=== PATIENT | female | born 1990 | race Caucasian/White ===

== ENCOUNTER 2019-05-07 01:15 | Inpatient (IN) | payer OTHER ==
[2019-05-07] MEDS ORDERED: NS / Oxytocin 40 units/1000ml 1,000 ML ONE (01:44)
[2019-05-07] MEDS ORDERED: Lidocaine 1% (PF) 30 ML VIAL ONE (01:44)
[2019-05-07] MEDS ORDERED: Ondansetron PF 4 MG/2 ML Vial IVP PRN ×3 (01:49→09:16)
[2019-05-07] MEDS ORDERED: Promethazine HCl 25 MG/ML VIAL IM PRN ×3 (01:49→09:16)
[2019-05-07] MEDS ORDERED: hydrALAZINE 20 MG/ML VIAL SLOW IVP PRN ×2 (01:49→09:16)
[2019-05-07] MEDS ORDERED: Lidocaine 1% (PF) 30 ML VIAL SC PRN (01:49)
[2019-05-07] MEDS ORDERED: Ibuprofen 800 MG TAB PO PRN (01:49)
[2019-05-07] MEDS ORDERED: NS / Oxytocin 40 units/1000ml 1,000 ML IV PRN (01:49)
[2019-05-07] MEDS ORDERED: Acetaminophen/Codeine 30-300mg Tablet PO PRN ×2 (01:49)
[2019-05-07] MEDS ORDERED: Butorphanol Tartrate 1 MG/ML VIAL SLOW IVP PRN (01:49)
[2019-05-07] MEDS ORDERED: Meperidine HCl/PF 25 MG/ML VIAL IM/IV PRN (01:49)
[2019-05-07] MEDS ORDERED: Zolpidem Tartrate 5 MG TAB PO PRN ×2 (01:49→03:53)
[2019-05-07] MEDS ORDERED: Oxytocin 10 UNITS/ML VIAL ONE ×3 (01:56→02:37)
[2019-05-07] MEDS ORDERED: Lactated Ringer's 1,000 ML IV SCH (02:00)
[2019-05-07] MEDS ORDERED: Fentanyl 250 MCG/5 ML VIAL ONE (02:22)
[2019-05-07 02:24] LABS: Hemoglobin 13.8 g/dL (12.0-16.0); Mean Corpuscular HGB CONC 35.3 g/dL (32.0-36.0); Mean Corpuscular Hemoglobin 33.6 pg (27.0-31.0); Mean Corpuscular Volume 95.2 fL (78.0-98.0); Mean Platelet Volume 7.7 fL (7.4-10.4); Platelet Count 297 thou/uL (130-400); RBC Distribution Width 11.6 % (11.5-14.5); White Blood Cell (WBC) Count 13.1 thou/uL (4.8-10.8)
[2019-05-07] MEDS ORDERED: Ondansetron PF 4 MG/2 ML Vial ONE (02:27)
[2019-05-07 02:35] LABS: pH (Cord, venous) 7.36 (7.32-7.43)
--- NOTE | 2019-05-07 02:51 | PDOC.EVN ---
Event Note - Event Note Event Note: CTSP for decreased FHts. SVE 8-9 cm, BBOW, vtx. AROM clear and FSE placed. FHTs to 60s seen. Pt. taken to OR where decreased FHTs again seen. Dr. Fleming arrived, proceeded with 1* C/S.
[2019-05-07 03:03] LABS: HBSAg Index 0.18 S/CO (0-0.99); Hep B Surf Ag Non-Reactive S/CO (NonReactive)
--- NOTE | 2019-05-07 03:48 | PDOC.LDHP ---
Labor and Delivery H&P HPI: 28 y/o at 40 and 1/7 weeks presents in labor to L&D, with Bulging membranes into the vagina and 8-9cm dilation. Apparently, she has contracted on and off at home throughout the day per her . Dr. Whipple, on hospitalist duty, was the first to evaluate the patient, perform AROM, and internal monitors were placed. bradycardia was encountered and failed to resolve throughout this initial evaluation. Patient was taken to the C -Section operating room. Persistent bradycardia was still encounter into the 60' s heart rate. Dr. Fleming arrived [place] [facility] [place] on the operating room table, Dr. Steve at bedside and Jack Worley CRNA at bedside. The OR was completely set-up for stat . Cervical check by Dr. Fleming at bedside was 8-9cm dilated /90% effaced/ -2 station. No prominent vaginal bleeding was encountered. No cord prolapse was noted. Vaginal delivery was not imminent and cervix was still present. At this point, I recommended to the patient and her that proceeding with immediate was the safest option for the baby, and the fastest method to resolve bradycardia and minimize a change at anoxic brain injury to the baby since a prolonged heart rate in the 60s was dangerous for the baby, and the patient was still relatively remote from delivery. We proceeded with stat under General Anesthesia. Start (cut) time of surgery was 216am. Baby was delivered and carried to [facility] in one minute at 217am. Cord gases were collected and sent. Placenta was sent to pathology. Current gestational age (weeks): 40 Due date: 05/06/19 Grav: 3 Para: 2 Current complications: none Abnormal US findings: No Current medications: pre- vitamins Allergies/Adverse Reactions: Allergies Allergy/AdvReac Type Severity Reaction Status Date / Time No Allergy Information Allergy Unverified 05/07/19 02:27 Available Social history: none - Physical Exam Vital signs reviewed and normal: yes General: NAD, resting, breathing through contractions Heart: RRR Lungs: CTAB Abdomen: NTTP Extremeties: no edema - Vaginal Exam cm dilated: 8 Effacement: 90% Station: -2 - Assessment L&D Assessment: term patient in labor - Plan Plan: admit to L&D
[2019-05-07] MEDS ORDERED: diphenhydrAMINE 50 MG/ML VIAL IVP PRN (03:53)
[2019-05-07] MEDS ORDERED: diphenhydrAMINE 25 MG CAP PO PRN ×2 (03:53→09:16)
[2019-05-07] MEDS ORDERED: diphenhydrAMINE 50 MG/ML VIAL IM PRN (03:53)
[2019-05-07] MEDS ORDERED: HYDROmorphone 10 mg/100 ml CADD IVPB PRN (03:53)
[2019-05-07] MEDS ORDERED: Naloxone HCl 0.4 mg/ml Vial IV PRN (03:53)
[2019-05-07] MEDS ORDERED: Communication Order-Pharmacy FS SCH (04:00)
[2019-05-07] MEDS: Lactated Ringer's 1,000 ML IV SCH ×2 (04:02→05:51)
[2019-05-07] MEDS ORDERED: Meperidine HCl/PF 25 MG/ML VIAL ONE (04:12)
[2019-05-07 04:41] VITALS: BMI 20.3
[2019-05-07 04:54] LABS: Syphilis Antibody Nonreactive (Nonreactive); Syphilis Antibody Index 0.04 S/CO (<1.00 Non-Reactive)
--- NOTE | 2019-05-07 06:07 | RAD ---
SINGLE VIEW ABDOMEN: INDICATIONS: Status post . Verify needle and sponge count. COMPARISON: None. FINDINGS: The visualized mid to lower abdomen demonstrates no retained radiopaque foreign body, such as a spong e or needle. There is a post gravid uterus seen within the mid to lower abdomen. The bowel gas kelton rubina is nonspecific. No acute osseous abnormality is evident. IMPRESSION: No retained radiopaque foreign body. POS: BH
--- NOTE | 2019-05-07 06:08 | RAD ---
SINGLE VIEW UPPER ABDOMEN: INDICATIONS: Verify count following . COMPARISON: Prior KUB performed earlier at 2:42 a.m. FINDINGS: No retained foreign body seen within the mid to upper abdomen. The dome of the liver is excluded. T he left lung base is clear. The bowel gas pattern is nonspecific but without evidence of obstruction . No acute osseous abnormality is evident. IMPRESSION: No retained radiopaque foreign body. POS: BH
[2019-05-07] MEDS ORDERED: Heparin 1,000 UNITS/ML VIAL ONE (09:00)
[2019-05-07] MEDS ORDERED: Methylergonovine 0.2 MG/ML VIAL IM PRN (09:16)
[2019-05-07] MEDS ORDERED: Misoprostol 200 MCG TAB PR PRN (09:16)
[2019-05-07] MEDS ORDERED: Simethicone Chewable 80 MG TAB PO PRN (09:16)
[2019-05-07] MEDS ORDERED: Bisacodyl 10 MG SUPP PR PRN (09:16)
[2019-05-07] MEDS ORDERED: Varicella virus, LIVE 0.5 ML VIAL SC ONE (09:16)
[2019-05-07] MEDS ORDERED: Adacel (T-DAP) 0.5 ML SYRINGE IM ONE (09:16)
[2019-05-07] MEDS ORDERED: NS / Oxytocin 40 units/1000ml 1,000 ML IV SCH (09:16)
[2019-05-07] MEDS ORDERED: Measles/Mumps/Rubella 10 MCG/0.5 ML VIAL SC ONE (09:16)
[2019-05-07] MEDS ORDERED: Lanolin Ointment 7 GM TUBE TOP PRN (09:16)
[2019-05-07] MEDS: Docusate Calcium (SURFAK) 240 MG CAP PO SCH ×2 (10:59→21:28)
[2019-05-07] MEDS ORDERED: PHENYLEPHRINE-NS 100 MCG/ML 10 ML SYRINGE ONE ×2 (11:11→16:27)
[2019-05-07] MEDS ORDERED: ePHEDrine/0.9% NaCl/PF SYRINGE 50 mg/10 ml ONE (11:11)
[2019-05-07] MEDS ORDERED: Succinylcholine Chloride 20 MG/ML 10 ml SYRINGE FS ONE ×2 (11:11→16:27)
[2019-05-07] MEDS: Ibuprofen 800 MG TAB PO SCH ×2 (13:38→21:28)
[2019-05-07] MEDS: HYDROcodone/Acetaminophen 5/325 mg Tablet PO PRN ×2 (15:49→22:41)
[2019-05-07] MEDS ORDERED: PROPOFOL 200 MG/20 ML VIAL ONE (16:27)
[2019-05-07] MEDS ORDERED: ePHEDrine 50 MG/ML VIAL ONE (16:27)
--- NOTE | 2019-05-07 18:34 | PDOC.PP ---
Post Progress Note Post Day #: 0 PO intake tolerated: yes Flatus: yes Ambulation: yes Vital Signs (12 hours) Temp Pulse Resp BP Pulse Ox 05/07/19 15:58 98.7 F 98 12 102/62 97 05/07/19 08:45 98.7 F 99 20 102/62 97 Weight Weight 130 lb - Physical Examination General: NAD Cardiovascular: no m/r/g Respiratory: clear to auscultation bilaterally Abdominal: + bowel sounds, lochia, no distention, appropriately TTP Extremities: negative homans (B) Skin: CS incision dry & intact, no rash Neurological: no gross focal deficits Psychiatric: A&Ox3, normal affect Result Diagrams: 05/07/19 02:15 Additional Labs: Post Labs Blood Type O POSITIVE 05/07/19 02:51 Hep Bs Antigen Non-Reactive S/CO (NonReactive) 05/07/19 02:15
[2019-05-08] MEDS: Ibuprofen 800 MG TAB PO SCH ×3 (04:37→20:58)
[2019-05-08] MEDS: HYDROcodone/Acetaminophen 5/325 mg Tablet PO PRN ×4 (04:38→19:02)
[2019-05-08 04:55] LABS: Hemoglobin 9.5 g/dL (12.0-16.0); Mean Corpuscular HGB CONC 33.8 g/dL (32.0-36.0); Mean Corpuscular Hemoglobin 32.8 pg (27.0-31.0); Mean Platelet Volume 7.8 fL (7.4-10.4); Platelet Count 237 thou/uL (130-400); RBC Distribution Width 11.8 % (11.5-14.5); White Blood Cell (WBC) Count 11.2 thou/uL (4.8-10.8)
[2019-05-08] MEDS: Docusate Calcium (SURFAK) 240 MG CAP PO SCH ×2 (09:25→20:58)
--- NOTE | 2019-05-08 23:48 | PDOC.PP ---
Post Progress Note Post Day #: 1 PO intake tolerated: yes Flatus: yes Ambulation: yes Vital Signs (12 hours) Temp Pulse Resp BP Pulse Ox 05/08/19 20:00 98.2 F 94 22 H 118/72 98 05/08/19 16:00 98.4 F 92 20 108/66 05/08/19 12:14 98.1 F 104 H 20 103/65 Weight Weight 130 lb - Physical Examination General: NAD Cardiovascular: no m/r/g, RRR Respiratory: clear to auscultation bilaterally, non-labored breathing Abdominal: + bowel sounds, lochia, no distention, appropriately TTP Extremities: negative homans (B) Skin: CS incision dry & intact, no rash Neurological: no gross focal deficits Psychiatric: A&Ox3, normal affect Result Diagrams: 05/08/19 04:12 Additional Labs: Post Labs Blood Type O POSITIVE 05/07/19 02:51 Hep Bs Antigen Non-Reactive S/CO (NonReactive) 05/07/19 02:15
[2019-05-09] MEDS: HYDROcodone/Acetaminophen 5/325 mg Tablet PO PRN ×4 (00:35→17:29)
[2019-05-09] MEDS: Ibuprofen 800 MG TAB PO SCH ×3 (05:34→17:32)
[2019-05-09] MEDS: Docusate Calcium (SURFAK) 240 MG CAP PO SCH ×2 (08:47→22:31)
--- NOTE | 2019-05-09 13:47 | PDOC.PP ---
Post Progress Note Post Day #: 2 PO intake tolerated: yes Flatus: yes Ambulation: yes Vital Signs (12 hours) Temp Pulse Resp BP Pulse Ox 05/09/19 13:31 98.8 F 05/09/19 12:50 99.1 F 05/09/19 12:33 98.7 F 94 15 108/71 05/09/19 08:23 97.7 F 73 16 93/62 98 05/09/19 06:35 93/61 05/09/19 04:54 98.0 F 88 20 87/54 L 97 Weight Weight 130 lb - Physical Examination General: NAD Cardiovascular: no m/r/g, RRR Respiratory: clear to auscultation bilaterally Abdominal: + bowel sounds, lochia, no distention Extremities: negative homans (B) Skin: CS incision dry & intact, no rash Neurological: no gross focal deficits Psychiatric: A&Ox3, normal affect (DC to home) Result Diagrams: 05/08/19 04:12 Additional Labs: Post Labs Blood Type O POSITIVE 05/07/19 02:51 Hep Bs Antigen Non-Reactive S/CO (NonReactive) 05/07/19 02:15
[2019-05-09] MEDS ORDERED: Bisacodyl 10 MG SUPP PR PRN (17:21)
[2019-05-09] MEDS ORDERED: Cefadroxil Hydrate 500 mg/5 ml Suspenion PO SCH ×2 (18:00→21:00)
[2019-05-09] MEDS: Cefadroxil Hydrate 500 mg/5 ml Suspenion PO SCH (18:38)
[2019-05-10] MEDS: HYDROcodone/Acetaminophen 5/325 mg Tablet PO PRN ×5 (02:05→23:46)
[2019-05-10] MEDS: Ibuprofen 800 MG TAB PO SCH ×3 (03:24→20:46)
[2019-05-10 04:17] LABS: Bacteria/HPF None Seen HPF (None Seen); Bilirubin Negative (Negative); Blood, Urine Negative (Negative); Clarity Clear (Clear); Glucose, Urine (Dipstick) Normal (Negative); Leukocyte Negative Leu/uL (Negative); Nitrite Negative (Negative); Protein, Urine (Dipstick) Negative (Neg-Trace); RBC/HPF 0-3 HPF (0-3); Squamous Epithelial 0-3 HPF (0-3); Urobilinogen Normal mg/dL (Less than 2); WBC/HPF 0-3 HPF (0-3)
--- NOTE | 2019-05-10 04:21 | PDOC.PP ---
Post Progress Note Post Day #: 3 Subjective: Patient has had some fever and chills which started yesterday late afternoon. She was started on Duricef 500mg BID. She has endometritis last after , but etiology of this fever remains unknown. Given the nature of her stat c- section, rapid friedman placement, etc. the chance of UTI is high. She has no cough or URI symptoms despite general anesthesia. She has now had one bowel movement. If the patient has another high fever, we will do zendejas cultures, and restart IV and change to broad specrum IV antibiotics. This morning, she stats she feels better, chills have improved. UA and Urine culture pending. Lab contacted for results. Pulse ox 99% on room air last check. Doubt DVT or PE. PO intake tolerated: yes Flatus: yes Ambulation: yes Vital Signs (12 hours) Temp Pulse Resp BP 05/10/19 03:34 100.1 F H 120 H 115/55 L 05/10/19 01:22 99.3 F 144 H 129/97 H 05/10/19 00:36 98.8 F 05/09/19 20:00 98.5 F 105 H 18 104/66 05/09/19 17:36 101.1 F H 05/09/19 16:45 99.9 F H 05/09/19 16:19 98.9 F 106 H 13 102/59 L Weight Weight 130 lb - Physical Examination General: NAD Cardiovascular: no m/r/g, RRR Respiratory: clear to auscultation bilaterally, non-labored breathing Abdominal: + bowel sounds, lochia, no distention, appropriately TTP Extremities: negative homans (B) Skin: CS incision dry & intact, no rash Neurological: no gross focal deficits Psychiatric: A&Ox3, normal affect Result Diagrams: 05/08/19 04:12 Additional Labs: Post Labs Blood Type O POSITIVE 05/07/19 02:51 Hep Bs Antigen Non-Reactive S/CO (NonReactive) 05/07/19 02:15
--- NOTE | 2019-05-10 05:00 | OP ---
DATE OF PROCEDURE: 05/07/2019 [facility]: [facility]. PREOPERATIVE DIAGNOSES: Intrauterine at 40 weeks and 1 day with distress and bradycardia with heart rate measured down to the 60s in the labor and delivery room and again down into the 60s in the operating room prior to section. POSTOPERATIVE DIAGNOSES: Intrauterine at 40 weeks and 1 day with distress and bradycardia with heart rate measured down to the 60s in the labor and delivery room and again down into the 60s in the operating room prior to section. PROCEDURE PERFORMED: Primary low transverse section using a Pfannenstiel skin incision. FINDINGS: Viable male weighing 3345 g or 7 pounds 6 ounces. Apgars 9 and 9. Cord pH of 7.31 arterial, 7.36 venous. QUANTITATIVE BLOOD LOSS: 965 mL. DETAILS OF THE PROCEDURE: The patient was consented and taken back to the operating room where spinal anesthesia was found to be adequate. She was then prepped and draped in the normal sterile fashion. A timeout was performed by the entire operative team. The incision was then marked with a marking pen tested using sharp pickups. An incision was then made with a scalpel. The incision was carried through the adipose tissue down to the underlying rectus fascia using both sharp dissection as well as cautery. Once the fascia was identified, it was incised in the midline and then the fascial incision was carried through in both lateral directions using sharp as well as cautery dissection techniques. Next, the superior aspect of the rectus fascia was grasped with 2 Eduardo clamps, which was tented up and the rectus muscles were dissected off using blunt dissection as well as cautery dissection. Similarly, the inferior aspect of the fascial incision was grasped with 2 Eduardo clamps, tented up and the rectus muscles were dissected off bluntly as well as sharply. Next, the rectus muscles were in the midline and the peritoneum identified. The peritoneum was then carefully grasped with 2 hemostats and entered sharply. The peritoneal incision was extended superiorly and inferiorly and bladder blade was placed in the lower abdomen. At this point, the uterus was identified and the bladder flap was then developed using pickups with teeth as well as Metzenbaum scissors in both lateral directions. The bladder flap was then dissected downwards using the candy rolling machine operator's finger as well as Metzenbaum scissors. The bladder blade was replaced. The lower uterine segment was then identified and entered sharply using a clean scalpel. The uterine incision was then dissected downwards until thin layer of muscle remained and this was entered bluntly using a hemostat to avoid any injury to the baby. The uterine incision was then stretched using two fingers in both lateral directions. An amniotomy was performed artificially using a hemostat and the baby was delivered using fundal pressure in a gentle fashion. Once out, the baby's mouth and nose were bulb suctioned, cord clamped and cut, and the baby was handed to waiting attendants. Next, the uterus was exteriorized, cleared of all clots and debris and the uterine incision was repaired with #1 Monocryl in a running locking fashion. A 2nd suture of the same type was used to obtain complete hemostasis at the uterine incision. The bladder flap was reapproximated using 3-0 Monocryl. Next, patient's left and right adnexa were inspected and appeared to be within normal limits. The posterior cul-de-sac was blotted dry and hemostasis assured. One more look at the uterine incision demonstrated hemostasis. Next, the uterus was replaced back within the abdomen. The peritoneum was reapproximated using 2-0 Monocryl without difficulty. The rectus muscles were then allowed to come back together and 0 chromic was used to aid in reapproximation of the muscle as necessary. The rectus fascia was then reapproximated in a running fashion using 0 Vicryl suture. The adipose tissue was then examined and appeared to be well approximated without any obvious separations. Finally, the skin was reapproximated with 3-0 Monocryl on a Christiano needle without difficulty and Dermabond adhesive was applied to the skin. Once the glue was dry, the drapes were removed and the patient was transferred to an ambulatory bed where she was taken to recovery awake and in stable condition. Sponge, lap, and needle counts were correct x3. Once the patient had completed surgery and all drapes were removed, it was noted that the patient had a substantial amount of her total blood loss underneath her and between her legs consistent with acute vaginal bleeding at the onset of surgery. This is consistent in my mind with an abruption that may have been occurring acutely at that time the patient rolled back to the operating room. This would explain bradycardia with normal cord pH's quite well in my mind. We did not see extensive amount of vaginal bleeding prior to draping, but it is clear the patient did lose considerable blood vaginally to follow. Despite the use of general anesthesia, the uterus did not remain boggy for any extended length of time and no extensive bleeding from the uterus was noted at the time of uterine repair. This leads me to believe that the majority of bleeding occurred during the prepping of the patient and induction of anesthesia rather than after delivery of the baby. Nonetheless, placenta was sent to Pathology for examination. However, I doubt that acute abruption would be as easy to diagnose pathologically as an abruption that had occurred much earlier in the picture. Job ID: [id number]
[2019-05-10] MEDS: Cefadroxil Hydrate 500 mg/5 ml Suspenion PO SCH (08:25)
[2019-05-10] MEDS: Docusate Calcium (SURFAK) 240 MG CAP PO SCH (08:27)
--- NOTE | 2019-05-10 16:27 | PDOC.EVN ---
Event Note - Event Note Event Note: Asked to see pt. by Dr. Fleming. POD#3 s/p stat 1* C/S for distress. C/o not feeling well, subjective fever. T to 101 on 05/09, started on PO cephalosporin. Tn= 100 but pulse now 124. Abdomen- incision clean but + fundal tenderness. A/P: High risk for endometritis, not responding to PO ABX. Will start Gent/ Clinda IV, check CBC and obtain BC. Dr. Fleming notified.
[2019-05-10] MEDS: Gentamicin Sulfate 80 MG in Premix Bag 1 BAG IVPB SCH (17:46)
[2019-05-10 18:15] LABS: #Basophils 0.1 thou/uL (0.0-0.2); #Eosinphils 0.3 thou/uL (0.0-0.7); #Lymphocytes 1.7 thou/uL (1.20-3.40); #Monocytes 1.3 thou/uL (0.11-0.59); #Neutrophils 8.7 thou/uL (1.40-6.50); %Basophils 0.4 % (0.0-1.0); %Eosinophils 2.8 % (0.0-10.0); %Lymphocytes 14.2 % (21.0-51.0); %Monocytes 10.7 % (0.0-10.0); %Neutrophils 71.9 % (42.0-75.0); Hemoglobin 9.2 g/dL (12.0-16.0); Mean Corpuscular HGB CONC 34.8 g/dL (32.0-36.0); Mean Corpuscular Hemoglobin 33.5 pg (27.0-31.0); Mean Corpuscular Volume 96.2 fL (78.0-98.0); Mean Platelet Volume 6.8 fL (7.4-10.4); Platelet Count 312 thou/uL (130-400); RBC Distribution Width 11.4 % (11.5-14.5); Red Blood Cell (RBC) Count 2.76 mill/uL (4.20-5.40); White Blood Cell (WBC) Count 12.1 thou/uL (4.8-10.8)
[2019-05-10] MEDS: Clindamycin/D5W 900 MG in Premix Bag 1 BAG IVPB SCH (20:43)
[2019-05-11] MEDS: Gentamicin Sulfate 80 MG in Premix Bag 1 BAG IVPB SCH ×3 (02:09→17:38)
[2019-05-11] MEDS: Clindamycin/D5W 900 MG in Premix Bag 1 BAG IVPB SCH ×3 (04:41→18:45)
[2019-05-11] MEDS: Docusate Calcium (SURFAK) 240 MG CAP PO SCH ×3 (04:44→19:50)
[2019-05-11] MEDS: Ibuprofen 800 MG TAB PO SCH ×4 (04:45→19:50)
[2019-05-11] MEDS: HYDROcodone/Acetaminophen 5/325 mg Tablet PO PRN ×3 (04:48→15:52)
[2019-05-11] MEDS: Ampicillin 2 GM in Sodium Chloride 0.9% 100 ML IVPB SCH ×2 (16:30→21:36)
[2019-05-12] MEDS: Gentamicin Sulfate 80 MG in Premix Bag 1 BAG IVPB SCH ×2 (00:44→11:49)
[2019-05-12] MEDS: HYDROcodone/Acetaminophen 5/325 mg Tablet PO PRN ×5 (02:19→22:00)
[2019-05-12] MEDS: Clindamycin/D5W 900 MG in Premix Bag 1 BAG IVPB SCH ×2 (02:20→12:48)
[2019-05-12] MEDS: Ibuprofen 800 MG TAB PO SCH ×4 (02:39→22:00)
[2019-05-12] MEDS: Ampicillin 2 GM in Sodium Chloride 0.9% 100 ML IVPB SCH ×3 (03:55→15:20)
[2019-05-12] MEDS: Docusate Calcium (SURFAK) 240 MG CAP PO SCH ×2 (09:57→21:50)
[2019-05-12] MEDS ORDERED: ISOVUE-370 76%-LOCM 1 ML ONE (13:13)
--- NOTE | 2019-05-12 14:48 | CT ---
EXAM: Abdomen and pelvic CT scan with contrast: HISTORY: Postoperative fever status post COMPARISON: None FINDINGS: The visualized lung bases are clear. Liver: Unremarkable. Gallbladder:Unremarkable. Pancreas:Unremarkable Spleen:Unremarkable. Adrenal glands:Unremarkable. Kidneys:No renal calculus or acute obstruction. Small right renal hypodensity, statistically a small cyst. No evidence for bowel obstruction. No CT evidence for acute appendicitis. The urinary bladder is unremarkable. There is an abnormally enlarged uterus consistent with recent . Scattered gas in the periton eal cavity and abdominal wall. Minimal scattered free fluid in the pelvis. Approximately 3.2 x 4 x 4.8 cm diameter fluid collection in the right adnexal region there is a small punctate focus of gas w ithin this collection which certainly could represent an abscess or possibly seroma. No abscess, adenopathy, or abnormal fluid collection within the abdomen or pelvis. . IMPRESSION: Postop changes. Free fluid in the pelvis. 3.2 x 4 x 4.8 cm diameter focal fluid collection in the right side of the pelvis with a small punctate focus of gas which early could represent a small abscess.
--- NOTE | 2019-05-12 16:44 | PDOC.PP ---
Post Progress Note Post Day #: 5 PO intake tolerated: yes Flatus: yes Ambulation: yes Vital Signs (12 hours) Temp Pulse Resp BP Pulse Ox 05/12/19 15:42 99.0 F 92 20 102/68 05/12/19 12:52 100.5 F H 05/12/19 11:50 99.1 F 107 H 20 109/67 05/12/19 08:15 99.4 F 100 20 116/72 98 Weight Weight 130 lb - Physical Examination General: NAD Cardiovascular: no m/r/g, RRR Respiratory: clear to auscultation bilaterally, non-labored breathing Abdominal: + bowel sounds, lochia, appropriately TTP Extremities: negative homans (B) Skin: CS incision dry & intact, no rash Neurological: no gross focal deficits Psychiatric: A&Ox3, normal affect Result Diagrams: 05/10/19 18:07 05/12/19 16:16 Additional Labs: Post Labs Blood Type O POSITIVE 05/07/19 02:51 Hep Bs Antigen Non-Reactive S/CO (NonReactive) 05/07/19 02:15 - Assessment/Plan Assesment: 1. Post Op Day #5 from Stat for bradycardia under General Anesthesia 2. Post Operative Fever of unknown etiology 3. Possible right pelvic abscess Plan: Today, the patient was originally rounded on by Dr. Horvath in the morning. She was on triple antibiotics at that time. She than had another fever, and I was contacted by her her nurse. Given persistent fevers despite negative blood cultures and antibiotics, I contacted Dr. Sharmila MD with Infectious disease for consultation. I also smoke to two members of the radiology department to assist me. CT scan of abdomen and pelvis was ordered and 4x4x3 cm fluid collection in the right adnexa was noted which may represent an abscess or seroma. An abscess in this region post operatively may certainly represent the source of fever. No definitive evidence of septic pelvic thrombophlebitis was seen, but per the reading radiologist that I spoke to, the CT contrast in the venous system was not ideal to see all the pelvic veins, as it was given earlier than would optimize seeing the pelvic veins. As of now, our options include: 1. repeating the CT study immediately and attempting delayed contrast, versus 2. first proceeding with the trial of new antibiotics per Dr. Doll and Consulting interventional radiology tomorrow. For now, we will proceed with the latter.
--- NOTE | 2019-05-12 18:31 | CON ---
DATE OF CONSULTATION: REASON FOR CONSULTATION: Pelvic abscess. HISTORY OF PRESENT ILLNESS: A 28-year-old G3, P2, who had because of bradycardia and developed postop fever five days following the procedure, had broad-spectrum antimicrobial coverage with persistence and now had a CT scan, which demonstrated a pelvic abscess as reported below. Some headaches. No visual symptoms, sore throat, odynophagia, or dysphagia. No cough, sputum production, or chest pain. Mild abdominal pain. No incisional issues. No joint symptoms or neurological symptoms. MEDICAL HISTORY: G3, P2. No other abnormalities reported in the past medical history. SOCIAL HISTORY: Negative. Never a smoker. FAMILY HISTORY: Noncontributory. CURRENT MEDICATIONS: She had been on, 1. Ampicillin. 2. Clindamycin. 3. P.r.n. medications. PHYSICAL EXAMINATION: VITAL SIGNS: T-max 100.5, blood pressure 102/68, pulse 92, respirations 20, and O2 sat 98%. SKIN: Shows the incision with normal appearance. Peripheral IV access. No lymphadenopathy. HEENT: Normal. NECK: Supple. LUNGS: Symmetric. Clear breath sounds. HEART: S1 and S2. Regular rate. ABDOMEN: Mildly distended and tneo-aw-hjporkmuvw tender in the lower segments. MUSCULOSKELETAL: No joint inflammatory activity. NEUROLOGIC: Nonfocal including cognitive function. LABORATORY DATA: White cell count 13 and now 12, hemoglobin down to 9.2, MCV 96, platelets 312, 71% neutrophils. Creatinine 0.8. Urinalysis was fairly normal. Syphilis and hepatitis surface antigen nonreactive. Two sets of blood culture, no growth [address] abdomen and pelvis with 3.2 x 4 x 4.8 cm focal fluid collection, right side of the pelvis. The placenta was within normal limits. ASSESSMENT: with postop fever with imaging findings consistent with pelvic abscess usual pathogens including gram-negative enterics, anaerobes as well as Staphylococcus aureus/methicillin-resistant Staphylococcus aureus. Switch to meropenem and vancomycin due to the possibility of extended spectrum beta-lactamases phenotype and methicillin-resistant Staphylococcus aureus presence. Consider percutaneous aspirate after discussion with Radiology. This would help not only in speeding up the resolution of inflammatory process, but give us the microbiology identification to allow potential discharge planning on oral antimicrobial therapy. Otherwise, she would need PICC line placement and IV therapy for another 10 to 14 days. Job ID: [id number]
[2019-05-12] MEDS: Vancomycin HCl 1 GM in Premix Bag 1 BAG IVPB SCH (18:42)
[2019-05-12] MEDS ORDERED: Vancomycin HCl 1.25 GM in Sodium Chloride 0.9% 250 ML 250 ML IVPB SCH (21:00)
[2019-05-12] MEDS: MEROPENEM 1 GM/50 ML 1 GM in Premix Bag 1 BAG IVPB SCH (21:50)
[2019-05-13] MEDS: MEROPENEM 1 GM/50 ML 1 GM in Premix Bag 1 BAG IVPB SCH ×3 (04:50→22:49)
[2019-05-13] MEDS: Ibuprofen 800 MG TAB PO SCH ×4 (04:51→22:49)
[2019-05-13] MEDS: HYDROcodone/Acetaminophen 5/325 mg Tablet PO PRN ×4 (04:51→23:50)
[2019-05-13] MEDS: Vancomycin HCl 1 GM in Premix Bag 1 BAG IVPB SCH ×2 (06:26→18:40)
[2019-05-13] MEDS: Docusate Calcium (SURFAK) 240 MG CAP PO SCH ×2 (10:02→22:50)
--- NOTE | 2019-05-13 17:04 | SPC ---
Ultrasound-guidedleftupper extremity PICC placement: 12/03/2018 HISTORY: Pelvic infection, intravenous antibiotics FINDINGS: Informed consent obtained prior to the procedure. Left antecubital fossa prepped and draped in normal sterile fashion. Skin overlying theleft basilicvein anesthetized with 1% buffered lidocaine. With direct sonographic g uidance, vascular access is obtained via the left basilicvein and an 0.018in wire was advanced to the cavoatrial junction. Intravascular length is calculated at 42 cm and of the PICC is cut according ly. Needle is removed and replaced with a peel-away sheath. The PICC was advanced over the wire. Wire and peel-away sheath were removed. The tip of the catheter overlies the cavoatrial junction. The port flushes well and the catheter is ready for use. Exposure data: 0.2 minutes of fluoroscopic time 643 mGy per centimeter squared IMPRESSION: Successful ultrasound guided placement of a leftupper extremity PICC.
--- NOTE | 2019-05-13 17:33 | PRG ---
DATE OF SERVICE: 05/13/2019 SUBJECTIVE: A little bit of pain in the right side of the pelvis. She is not sure if it is because now she is aware of the results of the CT scan. It is very mild. She had some temperature elevation recently. No headaches. No vomiting. No diarrhea. OBJECTIVE: VITAL SIGNS: T-max 100.5 yesterday at 12 and 99.8 more recently, there is a clear-cut downward trend in her temperature curve. Other vital signs normal. GENERAL: Awake, alert, and oriented. HEENT: Ocular movements conjugate. Oral cavity normal. NECK: Supple. LUNGS: Symmetric clear breath sounds. HEART: S1 and S2. Regular rate. ABDOMEN: Mildly distended. Mild tenderness in the right side of the pelvic area right lower quadrant. Voiding without difficulty. EXTREMITIES: Moves extremities equally. LABORATORY DATA: White cell count 12.1, hemoglobin 9.2, and platelets 312. Creatinine 0.8. Blood cultures, no growth. ASSESSMENT AND DISCUSSION: , postop fever with pelvic abscess. Aspiration will be difficult because of the location and we have discussed with Dr. Fleming and decided that it will be in the patient's best interest, conservative management at this point in time with continuation of meropenem and vancomycin or similar agent. Peripherally inserted central catheter line placement and plan outpatient treatment, duration probably around 2 weeks. Repeat imaging studies in the followup. Job ID: [id number]
--- NOTE | 2019-05-13 18:33 | PDOC.PP ---
Post Progress Note PO intake tolerated: yes Flatus: yes Ambulation: yes Vital Signs (12 hours) Temp Pulse Resp BP Pulse Ox 05/13/19 15:23 99.8 F H 98 16 123/88 99 05/13/19 11:33 99.0 F 99 20 109/74 05/13/19 07:43 98.1 F 89 20 112/71 97 Weight Weight 130 lb - Physical Examination General: NAD Cardiovascular: no m/r/g, RRR Respiratory: clear to auscultation bilaterally Abdominal: + bowel sounds, lochia, no distention Extremities: negative homans (B) Skin: CS incision dry & intact, no rash Neurological: no gross focal deficits Psychiatric: A&Ox3, normal affect Result Diagrams: 05/10/19 18:07 05/12/19 16:16 Additional Labs: Post Labs Blood Type O POSITIVE 05/07/19 02:51 Hep Bs Antigen Non-Reactive S/CO (NonReactive) 05/07/19 02:15 - Assessment/Plan Today, case discussed in detail with Dr. VALENZUELA, and for now, IR drainage has been put on hold due to potential risk of broad ligament injury and bleeding. PICC line placed today. We are looking at discharge planning with IV antibiotics.
[2019-05-14] MEDS: MEROPENEM 1 GM/50 ML 1 GM in Premix Bag 1 BAG IVPB SCH (05:04)
[2019-05-14 05:43] LABS: Vancomycin, Trough 9.6 ug/mL
[2019-05-14] MEDS ORDERED: Vancomycin HCl 1.25 GM in Sodium Chloride 0.9% 250 ML 250 ML IVPB SCH (06:00)
[2019-05-14 07:22] VITALS: BP 103/65; TEMP 98.6
[2019-05-14] MEDS: Docusate Calcium (SURFAK) 240 MG CAP PO SCH (08:21)
[2019-05-14] MEDS: HYDROcodone/Acetaminophen 5/325 mg Tablet PO PRN ×2 (08:21→11:33)
[2019-05-14] MEDS: Ibuprofen 800 MG TAB PO SCH (08:22)
== END 2019-05-14 12:00 | disposition home or self-care (01) | DRG 787 ==
LOC: L&D/OP 01:15 → L&D 02:00 → L&D-LIB 02:55 → 3SE 09:11
PROVIDERS: ADMIT Obstetrics & Gynecology; ATTEND Obstetrics & Gynecology
PROC: 10D00Z1 Extraction of Products of Conception, Low, Open Approach (ICD-10-PCS; principal; 2019-05-10)
PROC: 10907ZC Drainage of Amniotic Fluid, Therapeutic from Products of Conception, Via Natural or Artificial Opening (ICD-10-PCS; 2019-05-10)
PROC: 05HA33Z Insertion of Infusion Device into Left Brachial Vein, Percutaneous Approach (ICD-10-PCS; 2019-05-13)
PROC: B54NZZA Ultrasonography of Left Upper Extremity Veins, Guidance (ICD-10-PCS; 2019-05-13)
DX: O72.1 Other immediate postpartum hemorrhage (principal); O86.4 Pyrexia of unknown origin following delivery; Z3A.40 40 weeks gestation of pregnancy; O76 Abnormality in fetal heart rate and rhythm complicating labor and delivery; Z37.0 Single live birth; O86.03 Infection of obstetric surgical wound, organ and space site
CPT/HCPCS: 36415; 36569; 51702; 74018; 74177; 80202; 81001; 82565; 82805; 85025; 85027; 86780; 86850; 86900; 86901; 87040; 87086; 87340; 88307; 99285; C1751; J0290; J0690; J1580; J1644; J2001; J2175; J2185; J2405; J2590; J2704; J3010; J3370; J3490; J7050; Q9966

== ENCOUNTER 2019-05-26 07:34 | Outpatient (CLI) | payer OTHER ==
--- NOTE | 2019-05-26 11:00 | CT ---
ABDOMEN AND PELVIC CT WITH CONTRAST: COMPARISON: 05/12/2019. INDICATION: Abscess, followup. FINDINGS: The prior complex fluid collection of the right adnexal region has reduced in volume within this nancy on. There is now a complex, transversely oriented, peripherally enhancing fluid collection which und erlies the postoperative uterus, traversing midline difficult to reliably measure due to its infiltra ting and somewhat indistinct appearance due to apposition of adjacent structures, although measures a pproximately 6 cm transverse x 1.8 cm AP x 1.4 cm craniocaudal. There is also dependently located fr ee fluid of the pelvis. The uterus remains heterogeneous and prominent in volume with prominent hypo density at the endometrial region as well as anterior hypodensity some of which is presumed postsurgi matthew in etiology. No acute, interval intraabdominal process otherwise depicted. Small bowel is normal in caliber. No free air. Aorta is normal caliber. No interval acute osseous pathology. IMPRESSION: 1. Residual abscess does remain, with a differing configuration as compared to comparison exam of 05/12/2019. There is additional free pelvic fluid. 2. Redemonstration of heterogeneity and prominence of the uterus, although the uterus has decreased in volume from comparison exam. POS: [facility]
[2019-05-26] MEDS ORDERED: Iopamidol 370 76% 100 ML VIAL ONE (13:11)
== END 2019-05-26 07:35 | disposition home or self-care (01) ==
LOC: CT 07:34
PROVIDERS: ATTEND Internal Medicine Infectious Disease
DX: T81.42XD Infection following a procedure, deep incisional surgical site, subsequent encounter (principal); K68.11 Postprocedural retroperitoneal abscess
CPT/HCPCS: 74177; Q9967